=== PATIENT | female | born 1990 | race Caucasian/White ===

== ENCOUNTER 2016-12-19 05:31 | Inpatient (IN) | payer BC ==
[2016-12-19] VITALS (11 sets, daily range): BP systolic 106–131; BP diastolic 55–87
[~2016-12-19] VITALS: Ht 162.6 cm; Wt 68.1 kg
[2016-12-19] MEDS ORDERED: DAILY VITE1 EAC1 PO (06:31)
[2016-12-19 07:21] LABS: EOSINOPHIL (%) 1.4 % (0-5); EOSINOPHIL COUNT 0.2 K/uL (0-0.3); HEMATOCRIT 39.4 % (36.0-46.0); IMMATURE GRANULOCYTE (%) 0.4 % (0.0-0.7); IMMATURE GRANULOCYTE COUNT 0.4 K/uL; LYMPHOCYTE COUNT 1.6 K/uL (1.0-2.8); MCH 29.1 PG (29.0-34.0); MCHC 34.8 G/DL (30.0-36.0); MCV 83.7 FL (83-99); MEAN PLAT.VOLUME 11.8 uM^3 (9.5-12.4); MONOCYTE (%) 8.7 % (3-12); MONOCYTE COUNT 0.9 K/uL (0-0.8); NEUTROPHIL (%) 74.5 % (45-76); NEUTROPHIL COUNT 7.9 K/uL (1.8-6.4); PLATELET COUNT 212 K/uL (156-360); RBC DIS.WIDTH-CV 13.5 % (11.8-14.6); RBC DIS.WIDTH-SD 40.2 % (39-53); RED BLOOD COUNT 4.71 M/uL (3.80-5.20); WHITE BLOOD COUNT 10.6 K/uL (4.1-10.2)
[2016-12-19 07:54] LABS: DRSB INTERNAL CONTROL PASS; PROBE CHECK PASS; SPECIMEN PROCESSING CONTROL PASS
[2016-12-19] MEDS ORDERED: IBUPROFEN800 MG PO (10:30)
[2016-12-20 07:30] VITALS: BP 109/69
[2016-12-20 07:53] LABS: EOSINOPHIL (%) 1.4 % (0-5); EOSINOPHIL COUNT 0.2 K/uL (0-0.3); HEMATOCRIT 32.4 % (36.0-46.0); IMMATURE GRANULOCYTE (%) 0.5 % (0.0-0.7); IMMATURE GRANULOCYTE COUNT 0.1 K/uL; LYMPHOCYTE COUNT 1.9 K/uL (1.0-2.8); MCV 85.5 FL (83-99); MEAN PLAT.VOLUME 11.9 uM^3 (9.5-12.4); MONOCYTE (%) 7.2 % (3-12); MONOCYTE COUNT 0.8 K/uL (0-0.8); NEUTROPHIL COUNT 7.9 K/uL (1.8-6.4); PLATELET COUNT 185 K/uL (156-360); RBC DIS.WIDTH-CV 13.8 % (11.8-14.6); RBC DIS.WIDTH-SD 42.3 % (39-53); RED BLOOD COUNT 3.79 M/uL (3.80-5.20); WHITE BLOOD COUNT 10.8 K/uL (4.1-10.2)
[2016-12-20 23:21] VITALS: BP 101/70
[2016-12-21 07:39] VITALS: BP 125/70
== END 2016-12-21 15:09 | disposition home or self-care (01) | DRG 775 ==
LOC: LDRP-OP 05:31 → 2WEST 05:32
PROVIDERS: Midwife; Nurse Practitioner
PROC: 10E0XZZ Delivery of Products of Conception, External Approach (ICD-10-PCS; principal; 2016-12-19)
DX: O60.14X1 Preterm labor third trimester with preterm delivery third trimester, fetus 1 (principal); Z37.0 Single live birth; O69.81X1 Labor and delivery complicated by cord around neck, without compression, fetus 1; Z3A.36 36 weeks gestation of pregnancy
CPT/HCPCS: 85025; 87081; 87653; J0595; J2540; J7120